=== PATIENT | male | born 2000 | race Caucasian/White ===

== ENCOUNTER 2025-07-19 11:24 | Inpatient (IN) | payer OTHER ==
[2025-07-19] MEDS ORDERED: ALBUTEROL SO4 2.5/IPRATROPIUM 0.5 INH SOL 3 ML VIAL.NEB. NEB ONE (12:04)
[2025-07-19] MEDS: ALBUTEROL SO4 2.5/IPRATROPIUM 0.5 INH SOL 3 ML VIAL.NEB. NEB SCH (12:09)
[2025-07-19 12:19] LABS: MCHC 33.8 g/dl (32.3-36.5); MEAN CELL VOLUME 94.5 fl (79.0-92.2); MEAN PLT VOLUME 10.6 fl (9.4-12.4); RDW 13.0 % (11.9-15.3)
[2025-07-19 12:40] LABS: CO2 29.0 mmol/L (21-32); CREATININE 0.9 mg/dl (0.6-1.3); GLUCOSE,RANDOM 108.0 mg/dl (74-106)
[2025-07-19] MEDS ORDERED: methylPREDNISolone NA SUCC 125 MG/2 ML VIAL ONE (13:25)
[2025-07-19] MEDS: methylPREDNISolone NA SUCC 125 MG/2 ML VIAL IVPB ONE (13:27)
[2025-07-19 15:16] LABS: HIV INTERPRETATION NEGATIVE (NEGATIVE)
[2025-07-19 15:19] LABS: HCV DIAGNOSTIC IN-HOUSE W/RFLX NON-REACTIVE (NONREACTIVE)
[2025-07-19] MEDS ORDERED: AZITHROMYCIN 500 MG VIAL IVPB ONE (17:21)
[2025-07-19] MEDS: CEFTRIAXONE 1,000 MG in DEXTROSE 5%-WATER - 50 ML IVPB ONE (17:45)
[2025-07-19] MEDS: AZITHROMYCIN IVPB 500 MG in DEXTROSE 5%-WATER - 250 ML IVPB ONE (18:36)
[2025-07-19 18:40] LABS: N-TERMINAL BNP 22.2 pg/mL (0-299.9)
[2025-07-19 21:17] VITALS: BMI 27.1
[2025-07-19] MEDS ORDERED: ACETAMINOPHEN 325 MG TABLET (FP) PO PRN (21:42)
[2025-07-20] MEDS ORDERED: ALBUTEROL SO4 0.083% IH SOL 2.5 MG/3 ML VIAL.NEB. NEB PRN (00:36)
[2025-07-20 08:03] LABS: ABSOLUTE IMMATURE GRANULOCYTES 0.22 x10^3/uL (0.0-0.031); BASOPHILS # 0.03 x10^3/uL (0.01-0.08); EOSINOPHIL % 0.1 % (0.8-7.0); EOSINOPHILS # 0.02 x10^3/uL (0.04-0.54); MCHC 36.8 g/dl (32.3-36.5); MEAN CELL VOLUME 95.3 fl (79.0-92.2); MEAN PLT VOLUME 10.1 fl (9.4-12.4); MONOCYTE # 1.02 x10^3/uL (0.30-0.82); MONOCYTE % 7.5 % (5.3-12.2); RDW 13.0 % (11.9-15.3)
[2025-07-20 09:15] LABS: CO2 28.0 mmol/L (21-32); CREATININE 0.8 mg/dl (0.6-1.3); GLUCOSE,RANDOM 110.0 mg/dl (74-106)
[2025-07-20] MEDS: methylPREDNISolone NA SUCC 40 MG/1 ML VIAL IVPUSH SCH (10:22)
[2025-07-20] MEDS: CEFTRIAXONE 1 GM in DEXTROSE 5%-WATER - 50 ML IVPB SCH (10:22)
[2025-07-20] MEDS: AZITHROMYCIN IVPB 500 MG in DEXTROSE 5%-WATER - 250 ML IVPB SCH (10:22)
[2025-07-20] MEDS: ALBUTEROL SO4 2.5/IPRATROPIUM 0.5 INH SOL 3 ML VIAL.NEB. NEB SCH (21:07)
[2025-07-21 08:22] LABS: MCHC 33.4 g/dl (32.3-36.5); MEAN CELL VOLUME 94.7 fl (79.0-92.2); MEAN PLT VOLUME 9.8 fl (9.4-12.4); RDW 12.6 % (11.9-15.3)
[2025-07-21 09:15] LABS: ALK PHOS 59.0 U/L (45-117); CO2 30.0 mmol/L (21-32); CREATININE 0.9 mg/dl (0.6-1.3); GLUCOSE,RANDOM 92.0 mg/dl (74-106); SGOT/AST 17.0 U/L (15-37); SGPT/ALT 38.0 U/L (7-52); TOT PROT 7.5 g/dl (6.4-8.2)
[2025-07-21] MEDS: MELATONIN 5 MG TABLETS PO PRN (22:36)
[2025-07-22 08:45] LABS: MCHC 31.3 g/dl (32.3-36.5); MEAN CELL VOLUME 92.9 fl (79.0-92.2); MEAN PLT VOLUME 10.1 fl (9.4-12.4); RDW 12.6 % (11.9-15.3)
[2025-07-22 09:17] LABS: ALK PHOS 60.0 U/L (45-117); CO2 30.0 mmol/L (21-32); CREATININE 0.8 mg/dl (0.6-1.3); GLUCOSE,RANDOM 94.0 mg/dl (74-106); SGOT/AST 18.0 U/L (15-37); SGPT/ALT 41.0 U/L (7-52); TOT PROT 7.7 g/dl (6.4-8.2)
[2025-07-23 07:17] VITALS: RESP 18
[2025-07-24 08:48] LABS: ABSOLUTE IMMATURE GRANULOCYTES 0.61 x10^3/uL (0.0-0.031); BASOPHILS # 0.05 x10^3/uL (0.01-0.08); EOSINOPHIL % 1.0 % (0.8-7.0); EOSINOPHILS # 0.17 x10^3/uL (0.04-0.54); MCHC 33.4 g/dl (32.3-36.5); MEAN CELL VOLUME 95.0 fl (79.0-92.2); MEAN PLT VOLUME 9.7 fl (9.4-12.4); MONOCYTE # 1.20 x10^3/uL (0.30-0.82); MONOCYTE % 7.0 % (5.3-12.2); RDW 12.5 % (11.9-15.3)
[2025-07-24 09:01] LABS: ALK PHOS 66.0 U/L (45-117); CO2 30.0 mmol/L (21-32); CREATININE 0.8 mg/dl (0.6-1.3); GLUCOSE,RANDOM 80.0 mg/dl (74-106); SGOT/AST 26.0 U/L (15-37); SGPT/ALT 63.0 U/L (7-52); TOT PROT 7.6 g/dl (6.4-8.2)
[2025-07-24 14:27] VITALS: BP 128/52; PULSE 102; TEMP 97.5
== END 2025-07-24 12:30 | disposition home or self-care (01) | DRG 139 ==
LOC: FER 11:24 → FM/S 19:27
PROVIDERS: ADMIT Hospitalist
DX: J18.9 Pneumonia, unspecified organism (principal); F84.0 Autistic disorder; F41.9 Anxiety disorder, unspecified; R09.02 Hypoxemia
CPT/HCPCS: 36415; 71046-TC-FY; 71275-TC; 76604; 80048; 80053; 83605; 83880; 84484; 85025; 85379; 86803; 87040; 87389; 87637-QW; 87899; 93005; 93010; 93308; 94640; 99285-25; Q9967